=== PATIENT | male | born 1960 | race Caucasian/White ===

== ENCOUNTER → 2017-04-15 | Outpatient (CLI) | payer BC ==
[~2017-04-15] MED LIST: SIMV20TA5 PO; TEMA15CA4 PO
[2017-04-15 09:36] LABS: BASO % 0.3 %; BASO ABS # 0.01 K/uL (0-0.2); COMPLETE YES; EOS % 5.1 %; HEMATOCRIT 48.5 % (42-52); IG% 0.3 %; LYMPH % 25.3 %; MEAN CELL VOLUME 89.8 fL (80-100); MEAN CORPUSCULAR HEMOGLOBIN 29.4 pg (25-34); MEAN CORPUSCULAR HGB CONC 32.8 g/dl (32-36); MEAN PLATELET VOLUME 10.3 fL (7.4-10.4); MONO % 8.4 %; NEUT % 60.6 %; PLATELET COUNT 230 K/uL (130-400); WHITE BLOOD COUNT 3.56 K/uL (4.8-10.8)
[2017-04-15 09:54] LABS: ALT/SGPT 26 U/L (12-78); AST/SGOT 15 U/L (15-37); BLOOD UREA NITROGEN 16 mg/dl (7-18); BUN/CREATININE RATIO 18.6 (10-20); CALCIUM 8.8 mg/dl (8.5-10.1); CARBON DIOXIDE 29 mmol/L (21-32); CHLORIDE 108 mmol/L (98-107); CREATININE 0.84 mg/dl (0.60-1.40); GLUCOSE 92 mg/dl (70-99); POTASSIUM 4.1 mmol/L (3.5-5.1); SODIUM 141 mmol/L (136-145)
[2017-04-15 09:56] LABS: ALB/GLOB RATIO 1.4 (0.9-2); ALKALINE PHOSPHATASE 65 U/L (45-117); CHOLESTEROL 197 mg/dl (0-200); CHOLESTEROL/HDL RATIO 4.1; HDL CHOLESTEROL 48 mg/dl; LDL CHOLESTEROL CALCULATED 136 mg/dl; TRIGLYCERIDES 67 mg/dl (0-150); VERY LOW DENSITY LIPOPROT CALC 13 mg/dl
== END | disposition home or self-care (01) ==
LOC: C.LAB 08:02
PROVIDERS: ATTEND Nurse Practitioner Family
DX: E78.00 Pure hypercholesterolemia, unspecified (principal); Z11.59 Encounter for screening for other viral diseases